=== PATIENT | female | born 1965 | race Caucasian/White ===

== ENCOUNTER 2022-03-29 12:15 | Emergency (ER) | payer SELFPAY ==
[~2022-03-29 12:15] MED LIST: Iopamidol 370 76% 100 ML VIAL ONE
[2022-03-29] MEDS ORDERED: Ondansetron PF 4 MG/2 ML Vial ONE (12:50)
[2022-03-29] MEDS ORDERED: Sodium Chloride 0.9% 1,000 ML ONE (12:50)
[2022-03-29] MEDS ORDERED: Morphine 4 MG/ML VIAL ONE ×2 (12:50→15:33)
[2022-03-29 13:16] LABS: #Basophils 0.1 thou/uL (0.0-0.2); #Eosinphils 0.2 thou/uL (0.0-0.7); #Lymphocytes 2.2 thou/uL (1.20-3.40); #Monocytes 0.4 thou/uL (0.11-0.59); #Neutrophils 4.3 thou/uL (1.40-6.50); %Basophils 1.3 % (0.0-1.0); %Eosinophils 2.7 % (0.0-10.0); %Lymphocytes 30.4 % (21.0-51.0); %Monocytes 5.6 % (0.0-10.0); %Neutrophils 60.1 % (42.0-75.0); Mean Corpuscular HGB CONC 32.7 g/dL (32.0-36.0); Mean Corpuscular Hemoglobin 32.1 pg (27.0-31.0); Mean Corpuscular Volume 98.3 fl (78.0-98.0); Mean Platelet Volume 6.4 fL (7.4-10.4); Platelet Count 343 10x3/uL (130-400); RBC Distribution Width 11.7 % (11.5-14.5); Red Blood Cell (RBC) Count 4.04 mill/uL (4.20-5.40); White Blood Cell (WBC) Count 7.2 10x3/uL (4.8-10.8)
[2022-03-29 13:25] LABS: INR-International Normal Ratio 0.9; Prothrombin Time 12.9 sec (12.0-14.7)
[2022-03-29 13:26] LABS: PTT 27.1 sec (22.9-36.1)
[2022-03-29 13:28] LABS: D-Dimer Test 0.29 *mcg/mL (0.27-0.43)
[2022-03-29 13:35] LABS: ALT (SGPT) 13 U/L (8-55); AST (SGOT) 16 U/L (5-34); Albumin 4.1 g/dL (3.5-5.0); Alkaline Phosphatase 56 U/L (40-110); Anion Gap 12 mmol/L (10-20); BUN (Urea Nitrogen) 9 mg/dL (9.8-20.1); Bilirubin, Total 0.3 mg/dL (0.2-1.2); Calc. Creatinine Clearance 0 mL/min (70-130); Calcium 9.4 mg/dL (7.8-10.44); Carbon Dioxide 24 mmol/L (22-29); Chloride 103 mmol/L (98-107); Estimated GFR 88; Globulin 2.7 g/dL (2.4-3.5); Glucose 82 mg/dL (70-105); Lipase 45 U/L (8-78); Potassium 4.3 mmol/L (3.5-5.1); Protein, Total 6.8 g/dL (6.0-8.3); Sodium 135 mmol/L (136-145)
[2022-03-29 13:58] LABS: Bilirubin Negative (Negative); Blood, Urine Trace (Negative); Clarity Clear (Clear); Glucose, Urine (Dipstick) Negative (Negative); Ketone, Urine Negative (Negative); Leukocyte Negative (Negative); Nitrite Negative (Negative); Protein, Urine (Dipstick) Negative (Neg-Trace); Urobilinogen 0.2 mg/dL (Less than 2)
[2022-03-29 14:02] LABS: RBC/HPF 0-3 HPF (0-3); WBC/HPF None Seen HPF (0-3)
[2022-03-29 14:03] LABS: Bacteria/HPF None Seen HPF (None Seen); Squamous Epithelial 0-3 HPF (0-3)
[2022-03-29] MEDS ORDERED: methylPREDNISolone Sod Succ/PF 125 MG/2 ML VIAL ONE (14:49)
[2022-03-29] MEDS ORDERED: diphenhydrAMINE 50 MG/ML VIAL ONE (14:49)
[2022-03-29] MEDS ORDERED: Famotidine/PF 20 mg/2ml Vial ONE (14:49)
[2022-03-29] MEDS ORDERED: Ketorolac Tromethamine 30 MG/ML VIAL ONE (15:33)
== END 2022-03-29 16:08 | disposition home or self-care (01) ==
LOC: NAV ERS 12:15
DX: N94.89 Other specified conditions associated with female genital organs and menstrual cycle (principal); I10 Essential (primary) hypertension
CPT/HCPCS: 36415; 71045; 74177; 80053; 81003; 81015; 83605; 83690; 84484; 85025; 85379; 85610; 85730; 93005; 96374; 96375; 96376; J1200; J1885; J2270; J2405; J2930; J7050; Q9967; S0028